=== PATIENT | male | born 1960 ===

== ENCOUNTER 2020-07-24 00:31 | Emergency (ER) | payer BC ==
--- NOTE | 2020-07-24 01:01 | EDM.PDOC ---
ED HPI GENERAL MEDICAL PROBLEM - General Chief Complaint: General Stated Complaint: HIGH BLOOD PRESSURE Time Seen by Provider: 07/24/20 00:39 - History of Present Illness INITIAL COMMENTS - FREE TEXT/NARRATIVE: History of present illness: [] The patient woke up about 9 PM last night some completely dark yet. He thought it was morning this morning in time to go to work. He called his boss and told him he felt fevers and did not feel well would not come to work. The boss redirected him and told him that it was nighttime and not time to come to work. The patient now is oriented x4 and feels better. He says that recently he has been having a lack of coordination of his left upper extremity and a feeling of bandlike tightness around his left mid arm whenever his blood pressure is high. on the fifth of this month his doctor started him on losartan which was a new medication. At that time he stopped taking a baby aspirin every day because he did not know if it would mix with the losartan. Patient says he wakes up hot and confused occasionally for the last 6 months. The patient has no source of his fever tonight. On arrival here he does not have a fever and he did not document a number for his fever when he felt fevers tonight. The patient's bandlike tightness in his left arm is random and most often with his blood pressure is up and not associated with activity. There is no diaphoresis nausea or shortness of breath when he has this tightness but there is some lack of coordination of his left arm. He is right arm dominant. The patient was evaluated 05/12/2020 by his primary doctor and a CT that I can review in our records demonstrates that he had a small area of hypoattenuation in the [place] and caudate nucleus on the right side which was interpreted as possible chronic lacunar infarct by the radiologist. Review of systems: As per history of present illness and below otherwise all systems reviewed and negative. 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 That damaged his vision. He is supposed to take a baby aspirin every day. As per history of present illness and as reviewed below otherwise noncontributory. Surgical history: As per history of present illness and as reviewed below otherwise noncontributory. Social history: No reported history of drug or alcohol abuse. Family history: As per history of present illness and as reviewed below otherwise noncontributory. Physical exam: Constitutional - well developed, well-nourished and in no acute distress HEENT - normocephalic, no evidence of trauma - external nose and mouth normal - no mass in neck and no JVD - mucosae moist EYES - full EOM, PERRL, no icterus - no evidence of inflammation, injection, or drainage Respiratory - no respiratory distress, equal bilateral expansion, lungs clear to auscultation and no abnormal lung sounds Cardiovascular - Regular Rhythm with S1 and S2 appreciated and no murmur, gallop or rub. GI - abdomen soft without distension or organomegaly - normal bowel sounds - no guard or rebound Musculoskeletal no gross deformity of long bones or joints - no tenderness, swelling or edema Neurologic -my customary brief neurologic exam is normal - alert and oriented times four - CN II-XII grossly intact - motor sensory and coordination symmetrically normal Psychiatric - appropriate mood and affect with normal thought content Hematologic - No petechiae or purpura - mucosa appropriate color and sclera not pale - normal nail bed color and refill Integument - no rash or evidence of trauma - normal turgor Diagnostics: [] Therapeutics: [] Impression: [] Plan: [] Definitive disposition and diagnosis as appropriate pending reevaluation and review of above. - Related Data Allergies Allergy/AdvReac Type Severity Reaction Status Date / Time No Known Allergies Allergy Verified 07/24/20 00:44 Home Meds: Home Meds Losartan [Cozaar] 25 mg PO DAILY 07/24/20 [History] Past Medical History HEENT History: Reports: None Cardiovascular History: Reports: High Cholesterol, Hypertension Respiratory History: Reports: None Gastrointestinal History: Reports: None Genitourinary History: Reports: None Musculoskeletal History: Reports: None Neurological History: Reports: None Psychiatric History: Reports: None Endocrine/Metabolic History: Reports: None Hematologic History: Reports: None Oncologic (Cancer) History: Reports: None Dermatologic History: Reports: None - Infectious Disease History Infectious Disease History: Reports: Chicken Pox - Past Surgical History Head Surgeries/Procedures: Reports: None Social & Family History - Family History Family Medical History: No Pertinent Family History - Caffeine Use Caffeine Use: Reports: Coffee - Recreational Drug Use Recreational Drug Use: No ED ROS GENERAL - Review of Systems Review Of Systems: Comprehensive ROS is negative, except as noted in HPI. ED EXAM, GENERAL - Physical Exam Exam: See Below Free Text/Narrative:: My physical exam is in the HPI #1 Interpretation EKG Interpretation Comments: EKG done at 1:03 AM shows a sinus rhythm with a heart rate of 76. HI interval 206. QT duration 410. [place] IV. Borderline prolonged HI. RSR prime in V1 V2. No prior for comparison. ST and T were normal. Impression no acute injury or arrhythmia. Course - Vital Signs Last Recorded V/S: Last Vital Signs Temp 36.4 C 07/24/20 00:45 Pulse 75 07/24/20 01:34 Resp 18 07/24/20 01:34 BP 177/95 H 07/24/20 01:34 Pulse Ox 97 07/24/20 01:34 - Orders/Labs/Meds Orders: Active Orders 24 hr Category Date Time Status EKG Documentation Completion [RC] AM Care 07/24/20 01:03 Active Sodium Chloride 0.9% [Saline Flush] Med 07/24/20 01:03 Active 10 ml FLUSH ASDIRECTED PRN Sodium Chloride 0.9% [Saline Flush] Med 07/24/20 01:03 Active 2.5 ml FLUSH ASDIRECTED PRN Saline Lock Insert [OM.PC] Stat Oth 07/24/20 01:03 Ordered Medication Orders Sodium Chloride (Sodium Chloride 0.9% 10 Ml Syringe) 10 ml FLUSH ASDIRECTED PRN PRN Reason: Keep Vein Open Last Admin: 07/24/20 01:32 Dose: 10 ml Documented by: ALEX Sodium Chloride (Sodium Chloride 0.9% 2.5 Ml Syringe) 2.5 ml FLUSH ASDIRECTED PRN PRN Reason: Keep Vein Open Last Admin: 07/24/20 01:33 Dose: 2.5 ml Documented by: ALEX Labs: Laboratory Tests 07/24/20 07/24/20 07/24/20 Range/Units 01:00 01:00 02:30 WBC 11.74 H (4.0-11.0) K/uL RBC 5.03 (4.50-5.90) M/uL Hgb 15.2 (13.0-17.0) g/dL Hct 45.3 (38.0-50.0) % MCV 90.1 (80.0-98.0) fL MCH 30.2 (27.0-32.0) pg MCHC 33.6 (31.0-37.0) g/dL RDW Std Deviation 40.6 (28.0-62.0) fl RDW Coeff of [place] 12 (11.0-15.0) % Plt Count 274 (150-400) K/uL MPV 10.00 (7.40-12.00) fL Neut % (Auto) 62.4 (48.0-80.0) % Lymph % (Auto) 23.0 (16.0-40.0) % [place] % (Auto) 12.0 (0.0-15.0) % Eos % (Auto) 2.0 (0.0-7.0) % Baso % (Auto) 0.6 (0.0-1.5) % Neut # (Auto) 7.3 H (1.4-5.7) K/uL Lymph # (Auto) 2.7 H (0.6-2.4) K/uL [place] # (Auto) 1.4 H (0.0-0.8) K/uL Eos # (Auto) 0.2 (0.0-0.7) K/uL Baso # (Auto) 0.1 (0.0-0.1) K/uL Sodium 140 (136-148) mmol/L Potassium 4.1 (3.5-5.1) mmol/L Chloride 101 (98-107) mmol/L Carbon Dioxide 26.6 (21.0-32.0) mmol/L BUN 15 (7.0-18.0) mg/dL Creatinine 0.9 (0.8-1.3) mg/dL Est Cr Clr Drug Dosing 104.02 mL/min Estimated GFR (MDRD) > 60.0 ml/min Glucose 121 H (74-106) mg/dL Calcium 8.1 L (8.5-10.1) mg/dL Total Bilirubin 0.5 (0.2-1.0) mg/dL AST 17 (15-37) IU/L ALT 42 (14-63) IU/L Alkaline Phosphatase 82 (46-116) U/L Troponin I < 0.050 (0.000-0.056) ng/mL Total Protein 7.6 (6.4-8.2) g/dL Albumin 4.0 (3.4-5.0) g/dL Globulin 3.6 (2.6-4.0) g/dL Albumin/Globulin Ratio 1.1 (0.9-1.6) Urine Color YELLOW Urine Appearance CLEAR Urine pH 5.5 (5.0-8.0) Ur Specific [place] 1.015 (1.001-1.035) Urine Protein NEGATIVE (NEGATIVE) mg/dL Urine Glucose (UA) NEGATIVE (NEGATIVE) mg/dL Urine Ketones NEGATIVE (NEGATIVE) mg/dL Urine Occult Blood NEGATIVE (NEGATIVE) Urine Nitrite NEGATIVE (NEGATIVE) Urine Bilirubin NEGATIVE (NEGATIVE) Urine Urobilinogen 0.2 (<2.0) EU/dL Ur Leukocyte Esterase NEGATIVE (NEGATIVE) Meds: Medications Generic Name Dose Route Start Last Admin Trade Name Lavon PRN Reason Stop Dose Admin Sodium Chloride 10 ml 07/24/20 01:03 07/24/20 01:32 Sodium Chloride 0.9% 10 Ml Syringe FLUSH 10 ml ASDIRECTED PRN Administration Keep Vein Open Sodium Chloride 2.5 ml 07/24/20 01:03 07/24/20 01:33 Sodium Chloride 0.9% 2.5 Ml Syringe FLUSH 2.5 ml ASDIRECTED PRN Administration Keep Vein Open Discontinued Medications Generic Name Dose Route Start Last Admin Trade Name Lavon PRN Reason Stop Dose Admin Aspirin 325 mg 07/24/20 02:20 07/24/20 02:25 Aspirin 325 Mg Tab PO 07/24/20 02:21 325 mg ONETIME ONE Administration Departure - Departure Time of Disposition: 02:45 Disposition: Home, Self-Care 01 Condition: Good Clinical Impression: Viral syndrome, Hx-TIA (transient ischemic attack) - Discharge Information Referrals: Thee Romano MD [Primary Care Provider] - Forms: ED Department Discharge Additional Instructions: Based upon your history of having had what you call an eye stroke and a possible lacunar infarct on the CT May 12 you need to take a full 325 mg aspirin every day. You need to expeditiously have a work-up to include carotid ultrasound and echocardiogram. You need to see neurology. Since you are seeing your physician at 8 AM and your symptoms have persisted for days to weeks I do not think it is necessary to transfer emergently for this work-up but tell your doctor today that this is recommended. [facility] - Primary Care [address] [place] [address] [facility] [address] [place] [address] [facility] - Neurology Professional Building [address] [facility], [address] [place] [address] The following information is given to patients seen in the emergency department who are being discharged to home. This information is to outline your options for follow-up care. We provide all patients seen in our emergency department with a follow-up referral. The need for follow-up, as well as the timing and circumstances, are variable depending upon the specifics of your emergency department visit. If you don't have a primary care physician on staff, we will provide you with a referral. We always advise you to contact your personal physician following an emergency department visit to inform them of the circumstance of the visit and for follow-up with them and/or the need for any referrals to a consulting specialist. The emergency department will also refer you to a specialist when appropriate. This referral assures that you have the opportunity for follow-up care with a specialist. All of these measure are taken in an effort to provide you with optimal care, which includes your follow-up. Under all circumstances we always encourage you to contact your private physician who remains a resource for coordinating your care. When calling for follow-up care, please make the office aware that this follow-up is from your recent emergency room visit. If for any reason you are refused follow-up, please contact the [facility] Emergency Department at and asked to speak to the emergency department charge nurse. Sepsis Event Note (ED) - Evaluation Sepsis Screening Result: No Definite Risk - Focused Exam Vital Signs: Vital Signs Temp Pulse Resp BP Pulse Ox 07/24/20 01:34 75 18 177/95 H 97 07/24/20 00:45 36.4 C 87 18 186/97 H 96 - My Orders Last 24 Hours: My Active Orders 07/24/20 01:03 EKG Documentation Completion [RC] AM Sodium Chloride 0.9% [Saline Flush] 10 ml FLUSH ASDIRECTED PRN Sodium Chloride 0.9% [Saline Flush] 2.5 ml FLUSH ASDIRECTED PRN Saline Lock Insert [OM.PC] Stat - Assessment/Plan Last 24 Hours: My Active Orders 07/24/20 01:03 EKG Documentation Completion [RC] AM Sodium Chloride 0.9% [Saline Flush] 10 ml FLUSH ASDIRECTED PRN Sodium Chloride 0.9% [Saline Flush] 2.5 ml FLUSH ASDIRECTED PRN Saline Lock Insert [OM.PC] Stat
[2020-07-24] MEDS ORDERED: Sodium Chloride 0.9% 10 ML Syringe FLUSH PRN (01:03)
[2020-07-24] MEDS ORDERED: Sodium Chloride 0.9% 2.5 ML Syringe FLUSH PRN (01:03)
[2020-07-24 01:30] LABS: BLOOD UREA NITROGEN,BUN 15 mg/dL (7.0-18.0); CARBON DIOXIDE,CO2 26.6 mmol/L (21.0-32.0); CHLORIDE,CL 101 mmol/L (98-107); GLUCOSE RANDOM 121 mg/dL (74-106); POTASSIUM,K 4.1 mmol/L (3.5-5.1); SODIUM,NA 140 mmol/L (136-148)
--- NOTE | 2020-07-24 01:30 | CR ---
INDICATION: Fever chills TECHNIQUE: Chest radiograph 1 view on 2 films COMPARISON: None FINDINGS: Moderate degradation of image quality noted due to body habitus. Mediastinum: The mediastinum is normal in appearance. The heart silhouette is normal in size and morphology. Lung: Both lungs are unremarkable in appearance. No sign of pleural effusion seen. No pneumothorax is identified. Bone and Soft tissue: Unremarkable for age. IMPRESSION: 1. No acute cardiopulmonary disease is seen. Dictated by: Flvaio Can MD @ 07/24/2020 01:28:13 (Electronically Signed)
[2020-07-24] MEDS ORDERED: Aspirin 325 MG Tab PO ONE (02:20)
[2020-07-24] MEDS ORDERED: Labetalol 100 MG/20 ML MDV IVPUSH ONE (03:03)
== END 2020-07-24 03:25 | disposition home or self-care (01) ==
LOC: MW.ED 00:31
DX: B34.9 Viral infection, unspecified (principal); I10 Essential (primary) hypertension; Z86.73 Personal history of transient ischemic attack (TIA), and cerebral infarction without residual deficits
CPT/HCPCS: 36415; 71045; 80053; 80305; 81003; 84484; 85025; 96374; 99284; A9270; J3490; 93010